=== PATIENT | male | born 1960 | race African-American/Black ===

== ENCOUNTER 2016-11-11 20:22 | Emergency (ER) | payer MEDICAID ==
[~2016-11-11] VITALS: Ht 170.2 cm; Wt 100.0 kg
[~2016-11-11 20:22] MED LIST: AMLO5TAB4 PO; ATOR20TA PO; LOP25 PO; [UNRECOGNIZED DRUG - CODE] PO
[2016-11-11] MEDS ORDERED: MORPHINE SULFATE 4 MG/ML CPJ (NOT FOR IM USE) IV ONE (21:15)
[2016-11-11] MEDS ORDERED: ONDANSETRON HCL 4MG/2ML VIAL IV ONE (21:15)
[2016-11-11 23:30] VITALS: BP 120/77
== END 2016-11-11 23:34 | disposition home or self-care (01) ==
LOC: ER 20:23
DX: G89.18 Other acute postprocedural pain (principal); I10 Essential (primary) hypertension; E78.00 Pure hypercholesterolemia, unspecified; Z98.1 Arthrodesis status
CPT/HCPCS: 96374; 96375; 99284; J2270; J2405; Z7610